=== PATIENT | male | born 1980 | race African-American/Black ===

== ENCOUNTER 2016-05-08 04:09 | Emergency (ER) | payer MEDICARE, MEDICAID ==
[~2016-05-08] VITALS: Ht 172.7 cm; Wt 77.1 kg
[2016-05-08] MEDS ORDERED: HALOPERIDOL0.5 MG ORAL (04:17)
[2016-05-08] MEDS ORDERED: QUETIAPINE FUMA25 MG ORAL (04:17)
[2016-05-08] MEDS ORDERED: DEPAKOTE250 MG PO (04:17)
[2016-05-08 04:20] VITALS: BP 134/76
[2016-05-08] MEDS ORDERED: ALBUTEROL SULF8.5 GM INH (04:44)
--- NOTE | 2016-05-08 04:45 | Emergency Room Report ---
History of Present Illness General Chief Complaint: General Complaint Source: Patient, EMS Present Illness HPI This is a 35-year-old male with a history of asthma. He presents with chief complaint of want to check out his asthma. He said he has asthma it has not been checked out since he was 18. He said his symptoms are breath. He also said he has chest pain for the last year. Denies any fever chills denies any nausea vomiting. Want to make sure that his asthma is acting up. He came in by EMS. Allergies: Coded Allergies: No Known Allergies (Unverified , 05/08/16) Patient History Past Medical History: see triage record, old chart reviewed, asthma Past Surgical History: none Pertinent Family History: none Social History: Denies: drug use Immunizations: other Reviewed Nursing Documentation: PMH: Agreed, PSxH: Agreed Nursing Documentation-PMH Past Medical History: No History, Except For History Of Psychiatric Problem: Yes Review of Systems Eye: Denies: blurred vision, eye pain ENT: Denies: ear pain, nose congestion, throat swelling Respiratory: Reports: shortness of breath, Denies: cough Cardiovascular: Denies: chest pain, palpitations Gastrointestinal: Denies: abdominal pain, diarrhea, nausea, vomiting Musculoskeletal: Denies: back pain, joint pain Skin: Denies: rash Neurological: Denies: headache, numbness Endocrine: Denies: increased thirst, increased urine Hematologic/Lymphatic: Denies: easy bruising All Other Systems: negative except mentioned in HPI Physical Exam Vital Signs Date Time Temp Pulse Resp B/P Pulse Ox O2 Delivery O2 Flow Rate FiO2 05/08/16 04:11 97.5 98 18 134/76 100 Room Air vitals normal Sp02 EP Interpretation: reviewed, normal General Appearance: well appearing, no apparent distress, alert Head: normocephalic, atraumatic Eyes: bilateral eye EOMI, bilateral eye PERRL ENT: hearing grossly normal, normal pharynx Neck: full range of motion, supple, no meningismus Respiratory: chest non-tender, lungs clear, normal breath sounds Cardiovascular #1: regular rate, rhythm, no murmur Gastrointestinal: normal bowel sounds, non tender, no mass, no organomegaly, no bruit, non-distended Musculoskeletal: back normal, gait/station normal, normal range of motion Psychiatric: mood/affect normal Skin: warm/dry Medical Decision Making Diagnostic Impression: Primary Impression: Dyspnea Qualified Codes: R06.00 - Dyspnea, unspecified Additional Impression: Normal exam ER Course Patient complaining of asthma. Lungs are clear. He is resting comfortably. I suspect he is out of place to sleep. Denies suicidal thought or homicidal thought. No other complaint. We'll discharge home. Last Vital Signs Date Time Temp Pulse Resp B/P Pulse Ox O2 Delivery O2 Flow Rate FiO2 05/08/16 04:20 97.5 98 18 134/76 100 Room Air Status: improved Disposition: HOME, SELF-CARE Condition: Stable Scripts Albuterol Sulfate* (ALBUTEROL SULFATE MDI*) 8.5 Gm Hfa.aer.ad 2 PUFF INH Q4H Y for cough/wheezing, #1 EA 0 Refills Prov: NORM RILEY M.D. 05/08/16 Additional Instructions: Followup with your DrAle within 7 days needed. Return if worse. NORM RILEY M.D. May 08, 2016 04:45
[2016-05-08 05:02] VITALS: BP 1/1
== END 2016-05-08 05:30 | disposition home or self-care (01) ==
LOC: EDBD 04:09 → EMR 05:27
DX: J45.909 Unspecified asthma, uncomplicated (principal)
CPT/HCPCS: 99283